=== PATIENT | female | born 1970 | race Caucasian/White ===

== ENCOUNTER 2016-07-15 17:15 | Emergency (ER) | payer BC ==
[~2016-07-15 17:15] MED LIST: ACET500CAP PO; ATV1 PO; CREON24000 UNT PO; PRILO PO; PRINZIDE1 TA1 PO; REM15 PO; THERGRANM PO; VENTOLIN HFA INH; VITAMIN B OTC PO; VITAMIN B-121000 MC1 SL; VITAMIN D OTC PO
[2016-07-15 17:51] LABS: BASOPHILS 0.2 %; BASOPHILS ABSOLUTE 0.02 10/3/uL (0.0-0.16); EOSINOPHILS 0.6 %; EOSINOPHILS ABSOLUTE 0.08 10/3/uL (0.0-0.53); HEMATOCRIT 30.1 % (36.0-48.0); HEMOGLOBIN 9.8 g/dL (12.0-16.0); IMMATURE GRANULOCYTES 0.3 %; IMMATURE GRANULOCYTES ABSOLUTE 0.04 10/3/uL (0.0-0.11); LYMPHOCYTES 11.9 %; LYMPHOCYTES ABSOLUTE 1.47 10/3/uL (0.67-4.30); MEAN CORPUS HGB CONC 32.6 g/dL (32.0-36.0); MEAN PLATELET VOLUME 11.2 fL (9.2-13.0); MONOCYTES 4.1 %; NEUTROPHILS 82.9 %; NEUTROPHILS ABSOLUTE 10.22 10/3/uL (2.02-8.40); PLATELET COUNT 120 10/3/uL (150-400); RBC DISTRIBUTION WIDTH 14.4 % (12.0-16.0)
[2016-07-15 17:53] LABS: ER CBC TAT 0 Hrs 12 Mins; MEAN CORPUSCULAR HEMOGLOB 39.2 pg (26.0-34.0); MEAN CORPUSCULAR VOLUME 120.4 fL (80-100); WHITE BLOOD CELLS 12.3 10/3/uL (4.5-10.5)
[2016-07-15 17:54] LABS: MANUAL DIFF NO %
[2016-07-15 18:07] LABS: CALCIUM, SERUM 8.7 MG/DL (8.5-10.4); CHLORIDE, SERUM 108 MMOL/L (96-112); CREATININE 1.38 MG/DL (0.55-1.02); GFR AFRICAN AMERICAN 53 ML/MIN (>=60); GFR NON AFRICAN AMERICAN 46 ML/MIN (>=60); POTASSIUM, SERUM 3.5 MMOL/L (3.5-5.3); SGOT(AST) 54 U/L (5-40); SGPT(ALT) 69 U/L (5-65); TOTAL BILIRUBIN 0.7 MG/DL (0-1.2)
[2016-07-15 18:11] LABS: SODIUM, SERUM 135 MMOL/L (135-148)
[2016-07-15 18:12] LABS: A/G RATIO 0.7 (0.7-1.9); ALBUMIN 3.1 G/DL (3.5-5.0); ALKALINE PHOSPHATASE 321 U/L (45-117); BUN (BLOOD UREA NITROGEN) 27 MG/DL (6-23); GLOBULIN 4.3 G/DL (2.5-4.1); GLUCOSE, SERUM 123 MG/DL (60-99); TOTAL PROTEIN 7.4 G/DL (6.0-8.5)
[2016-07-15 18:28] LABS: CO2 (CARBON DIOXIDE) 14 MMOL/L (24-34)
[2016-07-15 20:35] LABS: BE (BASE EXCESS) -13.1 MEQ/L (0 +/- 2.5); CARBOXYHEMOGLOBIN 1.1 % (0-3); HCO3 (ACTUAL BICARBONATE) 11.4 MEQ/L (23-27); HEMOBLOGIN CONTENT 9.8 G/DL (12-16); INSTRUMENT SERIAL # 8087; METHEMOGLOBIN 0.2 % (0-3); O2 CONTENT 13.5 VOL% (18-24); OPERATOR ID 17589; PCO2 (CO2 TENSION) 23 MMHG (35-45); PO2 (O2 TENSION) 107 MMHG (79-93); SAMPLE Arterial; pH 7.32 (7.37-7.43)
[2016-07-15 20:36] LABS: ALLENS TEST Pos
[2016-07-16 00:17] LABS: ALCOHOL < 10 MG/DL (0)
== END 2016-07-16 01:13 | disposition home or self-care (01) ==
LOC: ER 17:15
PROVIDERS: Emergency Medicine; Hospitalist
DX: J45.909 Unspecified asthma, uncomplicated (principal); K76.0 Fatty (change of) liver, not elsewhere classified; I10 Essential (primary) hypertension; K21.9 Gastro-esophageal reflux disease without esophagitis; F41.9 Anxiety disorder, unspecified; Z79.899 Other long term (current) drug therapy
CPT/HCPCS: 36600; 71020; 71275; 80053; 82805; 83605; 83690; 83880; 85025; 85379; 87040; 87150; 93005; 94640; 99285; G0480; Q9967